=== PATIENT | male | born 1965 | race Two or more races ===

== ENCOUNTER 2023-06-28 17:53 | Emergency (ER) | payer MEDICARE, MEDICAID ==
[~2023-06-28] VITALS: Ht 157.5 cm; Wt 150.0 kg
[2023-06-28] MEDS ORDERED: InsuLIN REG 1unit/0.01ml Soln (100units/ml) ONE (18:04)
[2023-06-28 18:20] VITALS: PULSE 80; RESP 16; O2SAT 93
[2023-06-28] MEDS ORDERED: NOREPINEPHRINE 8 MG/250ML KIT 250 ML IV ONE (18:25)
[2023-06-28 18:32] VITALS: RESP 19; TEMP 97.2; O2SAT 97
[2023-06-28 18:33] VITALS: BP 77/59
[2023-06-28] MEDS ORDERED: NOREPINEPHRINE 8 MG/250ML KIT 250 ML IV SCH ×2 (18:45)
[2023-06-28 19:36] VITALS: PULSE 67
[2023-06-28 19:55] LABS: Chloride 98 mmol/L (98-107); Sodium 136 mmol/L (136-145)
[2023-06-28 19:58] LABS: Anion Gap 25 (5-15); Calcium 10.9 mg/dL (8.7-10.4); Carbon Dioxide 13 mmol/L (20-30)
[2023-06-28 20:03] LABS: Alkaline Phosphatase 88 U/L (46-116); Glucose 330 mg/dL (74-106); Magnesium 2.8 mg/dL (1.6-2.6)
[2023-06-28 20:05] LABS: Aspartate Aminotransferase 640 U/L (13-40); Bilirubin, Total 0.3 mg/dL (0.2-1.0); Total Protein 6.6 g/dL (5.7-8.2)
[2023-06-28 20:13] LABS: Alanine Aminotransferase 638 U/L (7-40); Albumin 4.1 g/dL (3.2-4.8); BUN/Creatinine Ratio 8.1 (10.0-20.0)
[2023-06-28 20:21] LABS: Potassium 7.9 mmol/L (3.5-5.1)
[2023-06-28 20:22] LABS: Blood Urea Nitrogen 88 mg/dL (9-23)
== END 2023-06-28 22:50 ==
LOC: EDBD 17:53 → ER 17:53
DX: I46.9 Cardiac arrest, cause unspecified (principal); I95.9 Hypotension, unspecified; N18.6 End stage renal disease; R94.31 Abnormal electrocardiogram [ECG] [EKG]
CPT/HCPCS: 36415; 36556; 36600; 71045; 80053; 82805; 83735; 84484; 92950; 93005; 99291; J1815